=== PATIENT | female | born 1990 | race Caucasian/White ===

== ENCOUNTER 2018-06-01 11:36 | Inpatient (IN) | payer OTHER ==
[~2018-06-01] VITALS: Ht 172.7 cm; Wt 82.0 kg
[2018-06-07] MEDS ORDERED: OXYTOCIN 30U/ 0.9% NaCL 500ML 500 ML ONE (04:33)
[2018-06-07] MEDS ORDERED: NEWBORN KIT ONE (04:33)
[2018-06-07] MEDS ORDERED: MISOPROSTOL 25 MCG TABLET ONE (04:33)
[2018-06-07] MEDS: LACTATED RINGERS 1,000 ML IV SCH ×5 (04:45→20:59)
[2018-06-07] MEDS ORDERED: OXYTOCIN 30U/ 0.9% NaCL 500ML 500 ML IV ONE (04:54)
[2018-06-07] MEDS ORDERED: D5%-LACTATED RINGERS 1,000 ML IV SCH (04:54)
[2018-06-07] MEDS ORDERED: OXYTOCIN 30U/ 0.9% NaCL 500ML 500 ML IV PRN (04:54)
[2018-06-07] MEDS ORDERED: FENTANYL PF 100 MCG/2ML IVPush PRN (05:00)
[2018-06-07] MEDS ORDERED: ONDANSETRON 2MG/ML, 2ML IVPush PRN ×2 (05:00→13:00)
[2018-06-07] MEDS ORDERED: CALCIUM CARBONATE 500 MG TAB.CHEW PO PRN (05:00)
[2018-06-07] MEDS ORDERED: MISOPROSTOL 25 MCG TABLET VG PRN (05:00)
[2018-06-07] MEDS ORDERED: FENTANYL PF 100 MCG/2ML IV PRN (05:00)
[2018-06-07 05:05] VITALS: BP 119/76
[2018-06-07] MEDS ORDERED: PLEASE ENTER ALLERGIES MC SCH (05:30)
[2018-06-07] MEDS ORDERED: PLEASE ENTER HEIGHT AND WEIGHT MC SCH (05:30)
[2018-06-07 05:36] LABS: BASOPHILS # (AUTO) 0.04 x10^3/uL (0-0.1); BASOPHILS % (AUTO) 1 % (0-1); EOSINOPHILS # (AUTO) 0.03 x10^3/uL (0-0.4); EOSINOPHILS % (AUTO) 1 % (1-7); LYMPHOCYTES # (AUTO) 1.59 x10^3/uL (1-3.4); LYMPHOCYTES % (AUTO) 23 % (22-44); MD NO; MEAN CORPUSCULAR HEMOGLOBIN 28.2 pg (27.0-34.8); MEAN CORPUSCULAR HGB CONC 33.3 g/dL (32.4-35.8); MEAN CORPUSCULAR VOLUME 84.6 fL (80-100); MEAN PLATELET VOLUME 10.1 fL (7.4-10.4); MONOCYTES % (AUTO) 10 % (2-9); NEUTROPHILS # (AUTO) 4.48 x10^3/uL (1.8-6.8); NEUTROPHILS % (AUTO) 66 % (42-75); PLATELET COUNT 194 x10^3/uL (130-400); RED BLOOD COUNT 3.76 x10^6/uL (3.82-5.3)
[2018-06-07] MEDS ORDERED: FENTANYL/BUPIV./NS/PF 250 ML EPIDCONT SCH ×2 (10:02→12:59)
[2018-06-07] MEDS ORDERED: FENTANYL PF 100 MCG/2ML ONE ×2 (10:21→17:02)
[2018-06-07] MEDS ORDERED: FENTANYL PF 500 MCG, BUPIVACAINE/PF 0.5%, 30ML 62.5 ML in SODIUM CHLORIDE 0.9% 177.5 ML EPIDCONT SCH ×2 (10:30→13:30)
[2018-06-07] MEDS ORDERED: BUPIVACAINE 0.25% ONE (11:15)
[2018-06-07] MEDS ORDERED: LIDOCAINE/PF 1.5-EPI 1:200K, 30 ML ONE (11:15)
[2018-06-07] MEDS ORDERED: BUPIVACAINE/PF 0.25% ONE (11:15)
[2018-06-07] MEDS ORDERED: DIPHENHYDRAMINE 50 MG/ML, 1ML IVPush PRN (13:00)
[2018-06-07] MEDS ORDERED: NALOXONE 0.4 MG/ML, 1ML IVPush PRN (13:00)
[2018-06-07] MEDS ORDERED: EPHEDRINE 50 MG/ML, 1ML IVPush PRN (13:00)
[2018-06-07] MEDS ORDERED: LACTATED RINGERS 1,000 ML IVBOLUS PRN (13:00)
[2018-06-07] MEDS ORDERED: LIDOCAINE/PF 1%, 30ML ONE (14:50)
[2018-06-07] MEDS ORDERED: MISOPROSTOL 200 MCG TABLET ONE (14:50)
[2018-06-07] MEDS ORDERED: LACTATED RINGERS 1,000 ML INTUTE PRN (16:30)
[2018-06-07] MEDS: OXYTOCIN 30U/ 0.9% NaCL 500ML 500 ML IV SCH (21:28)
[2018-06-07] MEDS ORDERED: RHOGAM FROM BLOOD BANK 1 NOTE EA IM/IV ONE (21:30)
[2018-06-07] MEDS ORDERED: METHYLERGONOVINE 0.2 MG/ML IM PRN (21:30)
[2018-06-07] MEDS ORDERED: ACETAMINOPHEN 325 MG TABLET PO PRN (21:30)
[2018-06-07] MEDS ORDERED: CARBOPROST TROMETHAMINE 250 MCG/ML, 1ML IM PRN (21:30)
[2018-06-07] MEDS ORDERED: DIPH,PERTUSS(ACELL),TET VAC/PF NC IM-VACC PRN (21:30)
[2018-06-07] MEDS ORDERED: OXYcodone/APAP 5/325MG TABLET PO PRN (21:30)
[2018-06-07] MEDS ORDERED: MISOPROSTOL 200 MCG TABLET PR PRN (21:30)
[2018-06-07] MEDS ORDERED: MEASLES,MUMPS&RUBELLA VACC/PF 0.5 ML SQ PRN (21:30)
[2018-06-07] MEDS ORDERED: IBUPROFEN 600 MG TABLET ONE (22:39)
[2018-06-07] MEDS: IBUPROFEN 600 MG TABLET PO PRN (22:42)
[2018-06-07 23:30] VITALS: BP 117/80
[2018-06-08 00:30] VITALS: BP 122/80
[2018-06-08] MEDS: OXYcodone/APAP 5/325MG TABLET PO PRN ×2 (01:04→21:31)
[2018-06-08 04:06] VITALS: BP 111/72
[2018-06-08 04:32] LABS: MEAN CORPUSCULAR HEMOGLOBIN 28.4 pg (27.0-34.8); MEAN CORPUSCULAR HGB CONC 33.2 g/dL (32.4-35.8); MEAN CORPUSCULAR VOLUME 85.4 fL (80-100); MEAN PLATELET VOLUME 10.3 fL (7.4-10.4); PLATELET COUNT 205 x10^3/uL (130-400); RED BLOOD COUNT 3.33 x10^6/uL (3.82-5.3); RED CELL DISTRIBUTION WIDTH 13.8 % (9.6-15.2)
[2018-06-08] MEDS: LACTATED RINGERS 1,000 ML IV SCH (04:59)
[2018-06-08 05:30] LABS: MD YES
[2018-06-08 05:31] LABS: BANDS%(MANUAL) 1 % (0-7); LYMPH#(MANUAL) 2.38 x10^3/uL (1-3.4); LYMPHS% (MANUAL) 12 % (22-44); MONOS% (MANUAL) 2 % (2-9); SEG#(MANUAL) 16.83 x10^3/uL (1.8-6.8); SEGS% (MANUAL) 85 % (42-75)
[2018-06-08 05:32] LABS: <PLATELET ESTIMATE> ADEQUATE; <PLT MORPHOLOGY> NORMAL PLT MORPH
[2018-06-08 06:14] LABS: <RBC MORPHOLOGY> NORMAL
[2018-06-08 07:15] VITALS: BP 111/76
[2018-06-08] MEDS: IBUPROFEN 600 MG TABLET PO PRN ×3 (07:25→21:31)
[2018-06-08] MEDS: DOCUSATE 100 MG CAPSULE PO PRN ×2 (07:25→21:30)
[2018-06-08] MEDS: PRENATAL VIT/IRON/FA 1 EACH TABLET PO SCH (07:26)
[2018-06-08] MEDS: OXYTOCIN 30U/ 0.9% NaCL 500ML 500 ML IV SCH (07:28)
[2018-06-08 12:00] VITALS: BP 116/68
[2018-06-08 19:20] VITALS: BP 113/77
[2018-06-09] MEDS: OXYcodone/APAP 5/325MG TABLET PO PRN ×3 (02:32→12:27)
[2018-06-09] MEDS: IBUPROFEN 600 MG TABLET PO PRN ×2 (05:33→12:27)
[2018-06-09 07:30] VITALS: BP 118/85
[2018-06-09] MEDS: PRENATAL VIT/IRON/FA 1 EACH TABLET PO SCH (07:33)
[2018-06-09] MEDS: DOCUSATE 100 MG CAPSULE PO PRN (07:33)
== END 2018-06-09 13:50 | disposition home or self-care (01) | DRG 775 ==
LOC: LDIP 06-07 04:17 → 2NW 06-07 21:30 → LDIP 06-07 21:44 → 2NW 06-07 23:05
PROVIDERS: ADMIT Obstetrics & Gynecology Maternal & Fetal Medicine; ATTEND Obstetrics & Gynecology Maternal & Fetal Medicine
PROC: 10E0XZZ Delivery of Products of Conception, External Approach (ICD-10-PCS; principal; 2018-06-07)
PROC: 0UQMXZZ Repair Vulva, External Approach (ICD-10-PCS; 2018-06-07)
PROC: 3E033VJ Introduction of Other Hormone into Peripheral Vein, Percutaneous Approach (ICD-10-PCS; 2018-06-07)
PROC: 3E0R3BZ Introduction of Anesthetic Agent into Spinal Canal, Percutaneous Approach (ICD-10-PCS; 2018-06-07)
PROC: 00HU33Z Insertion of Infusion Device into Spinal Canal, Percutaneous Approach (ICD-10-PCS; 2018-06-07)
PROC: 3E0234Z Introduction of Serum, Toxoid and Vaccine into Muscle, Percutaneous Approach (ICD-10-PCS; 2018-06-09)
DX: O71.82 Other specified trauma to perineum and vulva (principal); Z37.0 Single live birth; Z3A.40 40 weeks gestation of pregnancy; Z23 Encounter for immunization
CPT/HCPCS: 36415; 76815; 85025; 86850; 86900; 90715; J3010; J3490; J2590; J7050; J7120